=== PATIENT | male | born 1990 | race Caucasian/White ===

== ENCOUNTER 2016-12-25 18:17 | Emergency (ER) | payer SELFPAY ==
[~2016-12-25] VITALS: Wt 77.5 kg
[2016-12-25] MEDS ORDERED: BUTA1CAP38 PO (19:54)
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
[2016-12-25 22:00] VITALS: BP 125/76; PULSE 73; RESP 16; TEMP 98.6
== END 2016-12-25 22:01 | disposition home or self-care (01) ==
LOC: FTE 18:17
DX: S09.90XA Unspecified injury of head, initial encounter (principal); F17.210 Nicotine dependence, cigarettes, uncomplicated; R51 Headache; Y08.89XA Assault by other specified means, initial encounter
CPT/HCPCS: 70450

== ENCOUNTER 2017-09-12 12:34 | Emergency (ER) | END 2017-09-13 22:45 ==